=== PATIENT | male | born 1975 ===

== ENCOUNTER 2020-08-15 05:43 | Day surgery (SDC) | payer OTHER ==
[~2020-08-15 05:43] MED LIST: ATACAND PO; FENOFIBRATE160 MG PO; PANTOPRAZOLE SO40 M2 PO; [UNRECOGNIZED DRUG - OTHER] PO
[2020-08-15] MEDS ORDERED: MIRALAX17 GM PO (09:13)
[2020-08-15] MEDS ORDERED: ULTRAM50 MG PO (09:13)
[2020-08-15] MEDS ORDERED: TYLENOL ARTHRI650 MG PO (09:13)
== END 2020-08-15 12:30 | disposition home or self-care (01) ==
LOC: CIR.AMB 05:43
PROVIDERS: ATTEND Surgery
DX: K80.10 Calculus of gallbladder with chronic cholecystitis without obstruction (principal); Z20.822 Contact with and (suspected) exposure to COVID-19